=== PATIENT | female | born 1995 ===

== ENCOUNTER 2019-11-29 11:07 | Outpatient (CLI) | payer SELFPAY ==
--- NOTE | 2019-11-29 | US_ITS ---
WS: [id number] ULTRASOUND OB COMPLETE TECHNIQUE: Complete ultrasound. CLINICAL INFORMATION: CARE OF FIRST COMPARISON: None. FINDINGS: Cervix 4.9 cm Single interuterine gestation is identified with vertex presentation. Placenta is posterior. Placenta grade 1. Normal amniotic fluid volume. cardiac activity: 122 BPM. AGA: 29 weeks 6 days IGNACIO by ultrasound: February 08, 2020 Estimated weight: 3 lbs. 3 oz. BDP: 7.4 cm = 29w5d HC: 27.5 cm = 30w1d AC: 25.5 cm = 29w5d FEMUR LENGTH: 5.7 cm = 29w5d Anatomic survey: Anatomic survey is normal. Normal stomach. Kidneys and bladder are normal. Normal 3 vessel cord. Norm al 3 vessel cord insertion. Normal 4 chamber heart. Normal spine. Intracranial contents are normal. N ormal posterior fossa and cisterna magna. US/US OB >= 14 weeks fetus [id number] IMPRESSION: 1. Single intrauterine with visualized cardiac activity. AGA 29 week s 6 days with IGNACIO February 08, 2020. 2. Placenta is posterior No evidence of abruption or previa. 3. anatomic survey is normal. 4. Normal amniotic fluid volume.
== END 2019-11-29 11:08 | disposition home or self-care (01) ==
LOC: RADOUTREAD 11-30 09:48
PROVIDERS: Visit Provider Family Medicine
DX: Z34.03 Encounter for supervision of normal first pregnancy, third trimester (principal)

== ENCOUNTER 2020-01-31 08:10 | Inpatient (IN) | payer SELFPAY ==
[2020-01-31] VITALS (28 sets, daily range): BP systolic 0–147; BP diastolic 0–97; PULSE 75–133; RESP 14–18; TEMP 36.4–37.3; O2SAT 98–99; BMI 29.2
[2020-01-31 06:34] LABS: Basophils # 0.1 10^3/uL (0.0-0.1); Basophils % 0.3 %; Eosinophils # 0.1 10^3/uL (0.0-0.8); Eosinophils % 0.6 %; Hemoglobin 12.5 g/dL (11.5-15.3); Lymphocytes # 1.4 10^3/uL (0.8-4.8); Lymphocytes % 8.2 %; Mean Corpuscular HGB Conc 33.8 g/dL (30.0-36.0); Mean Corpuscular Volume 88.7 fL (81-99); Mean Platelet Volume 10.6 fL (7.4-10.4); Monocytes # 1.1 10^3/uL (0.2-0.9); Monocytes % 6.2 %; Neutrophils # 14.3 10^3/uL (1.8-7.7); Neutrophils % 84.1 %; Nucleated Red Blood Cells % 0 %; Platelet Count 356 10^3/cmm (130-400); Red Blood Count 4.17 10^6/uL (4.1-5.3); Red Cell Distribution Width 12.7 % (12.1-15.1); White Blood Count 17.1 10^3/uL (4.0-10.0)
--- NOTE | 2020-01-31 07:53 | P.PCNOB_ITS ---
Delivery Note: Date of delivery: January 31, 2020 Pre-delivery diagnoses: 24-year-old 3 para 2-0-0-2 at 38 weeks estimated gestational age presenting in active labor Post-delivery diagnoses: Status post spontaneous vaginal delivery Procedure: Spontaneous vaginal delivery Op report anesthesia: None Delivering Physician: Shade Parekh Estimated blood loss (mL): 250 Pre-Delivery Course: The patient presented to the hospital in active labor. She is GBS negative. Blood type is A+. Her glucose screen was also negative. An amniotomy was performed about an hour prior to delivery. She progressed to complete without difficulty. Delivery: DELIVERY: The patient progressed to complete without difficulty. She delivered a male with a weight of 7 pounds 8 ounces with Apgars of 9, 9. The baby was delivered from the YOLANDE position. The baby's mouth and nose were suctioned at the site of the perineum. The baby was then completely delivered and placed on the mother's abdomen. The cord was then clamped and cut. There was no nuchal cord. There was no meconium. The placenta and 3 vessel cord were delivered intact shortly thereafter. The perineum and vaginal vault were carefully examined. No lacerations were noted. Both the mother and the baby were in stable condition. Post-Delivery Status: Good Coding Level of Care Code Acute Director Instrumentation for Che Durand
[2020-01-31] MEDS: docusate sodium 100 mg Capsule PO ×2 (10:01→18:52)
[2020-01-31] MEDS: prenatal vitamin Capsule 1 CAP PO (10:01)
--- NOTE | 2020-01-31 12:50 | PC.NURSE ---
All discussed with assistance of hospital language translator. Patient verbalized understanding to language translator
[2020-01-31 19:58] LABS: Hematocrit 31.2 % (37.0-47.0); Hemoglobin 10.5 g/dL (11.5-15.3); Mean Corpuscular HGB Conc 33.7 g/dL (30.0-36.0); Mean Corpuscular Hemoglobin 30.4 pg (28.0-34.0); Mean Corpuscular Volume 90.4 fL (81-99); Mean Platelet Volume 10.2 fL (7.4-10.4); Platelet Count 301 10^3/cmm (130-400); Red Blood Count 3.45 10^6/uL (4.1-5.3); White Blood Count 19.1 10^3/uL (4.0-10.0)
[2020-02-01 02:59] VITALS: BP 105/64; PULSE 84; RESP 14; TEMP 36.8; O2SAT 97
[2020-02-01 04:13] VITALS: BP 121/77; PULSE 80; RESP 14; TEMP 36.7; O2SAT 98
[2020-02-01 10:00] VITALS: BP 108/76; PULSE 76; RESP 16; TEMP 36.6
[2020-02-01] MEDS: prenatal vitamin Capsule 1 CAP PO (10:35)
[2020-02-01] MEDS: docusate sodium 100 mg Capsule PO (10:35)
[2020-02-01 16:22] VITALS: BP 115/73; PULSE 88; RESP 17; TEMP 37.1
--- NOTE | 2020-02-01 16:25 | PC.NURSE ---
This instructional writer contacted pharmacy regarding the flu vaccine not being available on the JAN. Pharmacy stated that Dr. Parekh held the flu vaccine. Flu vaccine is not to be given at this time due to the order being held.
[2020-02-01 18:50] VITALS: BP 115/73; PULSE 88; RESP 17; TEMP 37.1
--- NOTE | 2020-02-23 08:06 | P.DS_ITS ---
Discharge Providers AIRPLANE DISPATCHER Date of Admission: 01/31/20 08:10 Date of Discharge: 02/01/20 Attending Provider at Admission: Shade Parekh MD Attending Provider at Discharge: Shade Parekh MD Diagnoses at Discharge Discharge Diagnosis (1) Spontaneous vaginal delivery: Status: Acute Reason for Visit Reason for Visit: Reason For Visit: contractions Hospital Course Hospital Course: The patient is a healthy multigravida female at 38 weeks estimated gestational age who presented to the hospital in active labor. She had an unremarkable labor and an unremarkable delivery. Her course was also unremarkable. She was able to breast-feed but also chose to bottlefeed in addition. Her bleeding was within normal limits. There were no concerns. Information Peripartum Data: Infant Delivery Method: Vaginal Physical Exam Narrative: EXAM NARRATIVE: The patient is alert. She appears comfortable. Her heart has a regular rate and rhythm with no murmurs appreciated. Lungs are clear to auscultation bilaterally. Her fundus is firm and below the umbilicus. Discharge Data Vitals: Last Vital Signs Temp 98.8 F 02/01/20 18:50 Pulse 88 02/01/20 18:50 Resp 17 02/01/20 18:50 BP 115/73 02/01/20 18:50 Pulse Ox 98 02/01/20 04:13 Discharge Plan Discharge Patient Disposition: Home, Self-Care Condition: Stable Prescriptions: New ibuprofen 800 mg Tablet 800 mg PO TID Qty: 30 RF: 0 Discharge Orders: Discharge Order (Routine); Ordered 02/01/20 Ordered By: Shade Parekh Referrals: Shade Parekh MD [Physician] - 03/19/20 1:30 pm (Your 6 week follow up appointment is with Dr. Parekh on March 19, 2020 1:30pm. ) Discharge Diet: Usual diet Discharge Activity: Limit activity as instructed Patient Instructions: Ibuprofen (By mouth), OB Discharge Report, OB Home Care, OB Proud Parent Packet, OB Vaginal Deliveries Activity Restrictions/Additional Instructions: Continue to take vitamins [id number]. Discharge Date/Time: 02/01/20 16:40 Discharge Attestations AIRPLANE DISPATCHER Time Spent in Discharge Care*: less than 30 min Coding Level of Care Code Acute Data Warehouse Manager for Chg Fwd Diagnoses Spontaneous vaginal delivery O80
== END 2020-02-01 16:40 | disposition home or self-care (01) | DRG 807 ==
LOC: OPOB 02-02 09:17
PROVIDERS: Admitting Provider Family Medicine; Visit Provider Family Medicine
DX: O80 Encounter for full-term uncomplicated delivery (principal); Z37.0 Single live birth; Z3A.38 38 weeks gestation of pregnancy
CPT/HCPCS: 12345; 59025; 59409; 85025; 85027; 99211

== ENCOUNTER → 2023-04-16 09:58 | Outpatient (BNVA) | payer SELFPAY | PROVIDERS: Visit Provider Nurse Practitioner Women's Health | DX: Z32.01 Encounter for pregnancy test, result positive (principal) | CPT/HCPCS: 81025 ==

== ENCOUNTER → 2023-04-20 07:48 | Outpatient (BNVA) | payer SELFPAY | PROVIDERS: Visit Provider Nurse Practitioner Women's Health | DX: O09.899 Supervision of other high risk pregnancies, unspecified trimester (principal); O41.8X90 Other specified disorders of amniotic fluid and membranes, unspecified trimester, not applicable or unspecified; O46.8X9 Other antepartum hemorrhage, unspecified trimester; O09.30 Supervision of pregnancy with insufficient antenatal care, unspecified trimester; Z3A.13 13 weeks gestation of pregnancy | CPT/HCPCS: 76801 ==

== ENCOUNTER → 2023-04-23 10:55 | Outpatient (BNVA) | payer SELFPAY | PROVIDERS: Visit Provider Nurse Practitioner Women's Health | DX: O09.899 Supervision of other high risk pregnancies, unspecified trimester (principal); Z3A.00 Weeks of gestation of pregnancy not specified | CPT/HCPCS: 80307; 81000; 85027; 86592; 86762; 86803; 86850; 86900; 87086; 87340; 87806 ==

== ENCOUNTER → 2023-04-27 13:07 | Outpatient (BNVA) | payer SELFPAY | PROVIDERS: Visit Provider Obstetrics & Gynecology | DX: O09.30 Supervision of pregnancy with insufficient antenatal care, unspecified trimester (principal); Z3A.00 Weeks of gestation of pregnancy not specified | CPT/HCPCS: 81000 ==

== ENCOUNTER → 2023-06-04 11:02 | Outpatient (BNVA) | payer SELFPAY | PROVIDERS: Visit Provider Obstetrics & Gynecology | DX: Z34.90 Encounter for supervision of normal pregnancy, unspecified, unspecified trimester (principal) | CPT/HCPCS: 76805 ==

== ENCOUNTER → 2023-06-05 09:00 | Outpatient (BNVA) | payer SELFPAY | PROVIDERS: Visit Provider Obstetrics & Gynecology | DX: O09.899 Supervision of other high risk pregnancies, unspecified trimester (principal); O41.8X90 Other specified disorders of amniotic fluid and membranes, unspecified trimester, not applicable or unspecified; O46.8X9 Other antepartum hemorrhage, unspecified trimester; Z78.9 Other specified health status; Z3A.21 21 weeks gestation of pregnancy | CPT/HCPCS: 81000 ==

== ENCOUNTER → 2023-07-01 14:12 | Outpatient (BNVA) | payer MEDICAID, SELFPAY | PROVIDERS: Visit Provider Nurse Practitioner Women's Health | DX: O09.899 Supervision of other high risk pregnancies, unspecified trimester (principal); Z3A.24 24 weeks gestation of pregnancy | CPT/HCPCS: 81000; 82950 ==

== ENCOUNTER → 2023-07-30 11:44 | Outpatient (BNVA) | payer MEDICAID, SELFPAY | PROVIDERS: Visit Provider Obstetrics & Gynecology | DX: O09.899 Supervision of other high risk pregnancies, unspecified trimester (principal); Z3A.28 28 weeks gestation of pregnancy | CPT/HCPCS: 81000; 85025 ==

== ENCOUNTER → 2023-08-14 08:10 | Outpatient (BNVA) | payer MEDICAID, SELFPAY | PROVIDERS: Visit Provider Nurse Practitioner Women's Health | DX: O09.899 Supervision of other high risk pregnancies, unspecified trimester (principal); O99.019 Anemia complicating pregnancy, unspecified trimester; Z3A.30 30 weeks gestation of pregnancy; D64.9 Anemia, unspecified | CPT/HCPCS: 81000 ==

== ENCOUNTER → 2023-08-31 13:04 | Outpatient (BNVA) | payer MEDICAID, SELFPAY | PROVIDERS: Visit Provider Obstetrics & Gynecology | DX: O09.899 Supervision of other high risk pregnancies, unspecified trimester (principal); O99.019 Anemia complicating pregnancy, unspecified trimester; Z3A.32 32 weeks gestation of pregnancy | CPT/HCPCS: 81000 ==

== ENCOUNTER → 2023-09-14 14:30 | Outpatient (BNVA) | payer MEDICAID, SELFPAY | PROVIDERS: Visit Provider Obstetrics & Gynecology | DX: O09.899 Supervision of other high risk pregnancies, unspecified trimester (principal) | CPT/HCPCS: 81000 ==

== ENCOUNTER → 2023-09-28 13:42 | Outpatient (BNVA) | payer MEDICAID, SELFPAY | PROVIDERS: Visit Provider Obstetrics & Gynecology | DX: O09.899 Supervision of other high risk pregnancies, unspecified trimester (principal); Z3A.36 36 weeks gestation of pregnancy | CPT/HCPCS: 81000; 87081 ==

== ENCOUNTER → 2023-10-05 11:45 | Outpatient (BNVA) | payer MEDICAID, SELFPAY | PROVIDERS: Visit Provider Obstetrics & Gynecology | DX: O09.899 Supervision of other high risk pregnancies, unspecified trimester (principal); Z3A.37 37 weeks gestation of pregnancy | CPT/HCPCS: 81000 ==

== ENCOUNTER → 2023-10-12 13:00 | Outpatient (BNVA) | payer MEDICAID, SELFPAY | PROVIDERS: Visit Provider Obstetrics & Gynecology | DX: O09.899 Supervision of other high risk pregnancies, unspecified trimester (principal); Z3A.38 38 weeks gestation of pregnancy | CPT/HCPCS: 81000 ==

== ENCOUNTER → 2023-10-19 13:40 | Outpatient (BNVA) | payer MEDICAID, SELFPAY | PROVIDERS: Visit Provider Obstetrics & Gynecology | DX: O09.899 Supervision of other high risk pregnancies, unspecified trimester (principal); Z3A.39 39 weeks gestation of pregnancy | CPT/HCPCS: 81000 ==

== ENCOUNTER 2023-10-20 17:03 | Outpatient (CLI) | payer MEDICAID, SELFPAY ==
[2023-10-20 17:05] VITALS: BMI 31.5
[2023-10-20 17:29] VITALS: BP 132/80; PULSE 76
[2023-10-20 17:49] VITALS: BP 114/79; PULSE 80
== END 2023-10-20 18:00 | disposition home or self-care (01) ==
LOC: OPOB 17:09 → OBGYN 17:10
PROVIDERS: Visit Provider Obstetrics & Gynecology
DX: O26.899 Other specified pregnancy related conditions, unspecified trimester (principal); Z3A.00 Weeks of gestation of pregnancy not specified
CPT/HCPCS: 59025; 99211

== ENCOUNTER 2023-10-21 19:56 | Inpatient (IN) | payer MEDICAID, SELFPAY ==
[2023-10-21] VITALS (42 sets, daily range): BP systolic 100–157; BP diastolic 56–85; PULSE 64–104; RESP 18; TEMP 35.3–36.2; O2SAT 93–97; BMI 30.4
[2023-10-21 09:41] LABS: Basophils # 0.1 10^3/uL (0.0-0.1); Basophils % 0.5 %; Eosinophils # 0.3 10^3/uL (0.0-0.8); Eosinophils % 2.8 %; Hematocrit 37.1 % (36-47); Lymphocytes # 1.9 10^3/uL (0.8-4.8); Mean Corpuscular HGB Conc 33.7 g/dL (30-55); Mean Corpuscular Hemoglobin 30.6 pg (27-33); Mean Corpuscular Volume 90.7 fl (85-98); Mean Platelet Volume 10.1 fL (7.4-10.4); Monocytes # 0.8 10^3/uL (0.2-0.9); Monocytes % 7.4 %; Neutrophils % 70.6 %; Nucleated Red Blood Cells % 0 %; Platelet Count 279 10^3/cmm (157-399); Red Blood Count 4.09 10^6/uL (3.85-5.65); Red Cell Distribution Width 15.1 % (12.1-15.1); White Blood Count 10.75 10^3/uL (3.29-11.43)
[2023-10-21] MEDS: miSOPROStol 100 mcg tablet 25 MCG VAGINAL (09:45)
--- NOTE | 2023-10-21 09:55 | PM.OPHPUD ---
Labor & Delivery H&P Update Date of Procedure: October 21, 2023 Date H&P Performed: 10/12/23 H&P update information: I have reviewed H&P completed within last 30 days, I have examined patient prior to procedure and No changes to prior documentation Admission Diagnosis:
[2023-10-21] MEDS: lactated ringers 1,000 ML 999 ML IV (11:52)
[2023-10-21] MEDS: lactated ringers 1,000 ML 125 ML IV (16:59)
[2023-10-21] MEDS: fentaNYL 50 mcg/mL INJ 2mL IVP ×2 (18:26→19:26)
[2023-10-21] MEDS: oxytocin 30 UNIT/500 ML BAG 600 UNIT IV (20:51)
--- NOTE | 2023-10-21 21:00 | PM.DELIVERY ---
Delivery Note: Date of delivery: October 21, 2023 Pre-delivery diagnoses: Term Post-delivery diagnoses: Term delivered Procedure: Spontaneous vaginal delivery Delivering Physician: James Burdick MD Estimated blood loss (mL): 300 Delivery: The patient was noted to be complete and pushing, so was placed in the dorsal lithotomy position, prepped and draped in the usual sterile fashion for a vaginal delivery. Pt. Noted to have epidural anesthesia. The patient delivered a viable term female infant weighing 3555 g with scores of 8 and 9 at one and five minutes, respectively. The vertex was delivered spontaneously over intact perineum. The patient was asked to push and the head delivered spontaneously in the CORA position, over an intact perineum. A nuchal cord was checked and 1 noted, and delivered through around head as necessary. The anterior shoulder delivered easily and the posterior shoulder followed. The remainder of the infant was easily delivered and the oropharynx and nasopharynx was bulb suctioned. The infant was noted to have spontaneous cry and spontaneous movement of all four extremities. The cord was clamped x 2 and cut and noted to have 2 arteries and one vein. The infant was passed to the mother's abdomen where nursing personnel were in attendance. The placenta delivered intact spontaneously and the uterus was explored. 20 units of Pitocin was placed in the IV bag to firm the uterus. Examination of the cervix and vaginal vault did not reveal any lacerations. A vaginal pack was then placed. Examination of the perineum showed no lacerations. The vaginal pack was then removed. The patient tolerated this procedure well, and recovered in L&D with her in their LDR room. All sponge and needle counts were correct. Post-Delivery Status: Good History History History 3 Term 2 0 Miscarriages/Ectopic 0 Living Children 2 A&P Assessment and plan (1) Term delivered: Plan observation Coding Level of Care Code Acute Code for Chg Fwd Diagnoses Term delivered O80
[2023-10-22] VITALS (11 sets, daily range): BP systolic 103–122; BP diastolic 63–83; PULSE 76–106; RESP 16–18; TEMP 36.6–37.5; O2SAT 96–99
[2023-10-22] MEDS: docusate sodium 100 mg Capsule PO ×2 (09:05→20:47)
[2023-10-22] MEDS: prenatal vitamin Capsule 1 CAP PO (09:05)
[2023-10-22] MEDS: ibuprofen 800 mg tablet PO ×3 (09:05→20:45)
[2023-10-22 10:40] LABS: Hematocrit 34.2 % (36-47); Mean Corpuscular HGB Conc 33.6 g/dL (30-55); Mean Corpuscular Hemoglobin 30.7 pg (27-33); Mean Corpuscular Volume 91.4 fl (85-98); Mean Platelet Volume 10.1 fL (7.4-10.4); Platelet Count 267 10^3/cmm (157-399); Red Blood Count 3.74 10^6/uL (3.85-5.65); Red Cell Distribution Width 15.1 % (12.1-15.1); White Blood Count 12.66 10^3/uL (3.29-11.43)
--- NOTE | 2023-10-22 17:30 | PM.OBGYDC ---
Discharge Providers MARKETING ASSISTANT MANAGER Date of Admission: 10/21/23 19:56 Date of Discharge: 10/22/23 Attending Provider at Admission: James Burdick MD Attending Provider at Discharge: James Burdick MD Diagnoses at Discharge Discharge Diagnosis (1) Term delivered: Status: Acute Reason for Visit Reason for Visit: Induction Hospital Course Hospital Course Mrs. Ramos 28-year-old female G3, P2 with an estimated stational age at 40 weeks. Came to labor and delivery for elective induction but she had low ratio when she was having contractions every 5 minutes. She progressed spontaneously to have a spontaneous vaginal delivery without complications. She delivered a term female infant Apgars 8/9 with a birthweight of 3555 g. observation was uneventful. She is afebrile and hemodynamically stable day 1. Tolerating diet well. Ambulating without difficulty. She is breast-feeding. She refers she may try progesterone only contraception as she will be breast-feeding when she comes back at the 6-week visit. She was counseled regarding pelvic rest for 6 weeks (no sex, no tampons, no vaginal douches). Return to the emergency room if any fever, increased bleeding or pain. Information Peripartum Data: Infant Delivery Method: Vaginal Physical Exam Narrative: GA; alert and oriented x 3 HEENT: normal Breasts: engorged Nipples - skin intact Lungs; clear to auscultation Heart: regular rhythm, no murmurs. Abd: Appropriately tender. BS+. Uterine fundus below umbilicus. No Fundal Tenderness. Perineum: normal lochia. Extremities: no edema, no cyanosis, no tenderness. History History History 3 Term 2 0 Miscarriages/Ectopic 0 Living Children 2 Discharge Data Studies Completed and Pending Laboratory Results WBC 12.66 10^3/uL (3.29-11.43) H 10/22/23 09:55 RBC 3.74 10^6/uL (3.85-5.65) L 10/22/23 09:55 Hgb 11.50 g/dL (11.27-16.99) 10/22/23 09:55 Hct 34.2 % (36-47) L 10/22/23 09:55 MCV 91.4 fl (85-98) 10/22/23 09:55 MCH 30.7 pg (27-33) 10/22/23 09:55 MCHC 33.6 g/dL (30-55) 10/22/23 09:55 RDW 15.1 % (12.1-15.1) 10/22/23 09:55 Plt Count 267 10^3/cmm (157-399) 10/22/23 09:55 MPV 10.1 fL (7.4-10.4) 10/22/23 09:55 Neut % (Auto) 70.6 % 10/21/23 09:15 Lymph % (Auto) 18.0 % 10/21/23 09:15 [place] % (Auto) 7.4 % 10/21/23 09:15 Eos % (Auto) 2.8 % 10/21/23 09:15 Baso % (Auto) 0.5 % 10/21/23 09:15 Neut # (Auto) 7.60 10^3/uL (1.8-7.7) 10/21/23 09:15 Lymph # (Auto) 1.9 10^3/uL (0.8-4.8) 10/21/23 09:15 [place] # (Auto) 0.8 10^3/uL (0.2-0.9) 10/21/23 09:15 Eos # (Auto) 0.3 10^3/uL (0.0-0.8) 10/21/23 09:15 Baso # (Auto) 0.1 10^3/uL (0.0-0.1) 10/21/23 09:15 Nucleated RBC % (auto) 0 % 10/21/23 09:15 Nucleated RBCs # 0.0 /100WBC 10/21/23 09:15 Blood Type A Positive 10/21/23 09:15 Rho(D) Type Rh positive 10/21/23 09:15 Antibody Screen Negative 10/21/23 09:15 Vitals Last Vital Signs Temp 99.3 F 10/22/23 11:50 Pulse 96 10/22/23 11:50 Resp 16 10/22/23 11:50 BP 119/75 10/22/23 11:50 Pulse Ox 96 10/22/23 11:50 O2 Del Method Room Air 10/22/23 11:50 Results Labs OB ([facility]): Blood Type A Positive 10/21/23 Antibody Screen Negative 10/21/23 Hct 34.2 % (36-47) L 10/22/23 Hgb 11.50 g/dL (11.27-16.99) 10/22/23 Rho(D) Type Rh positive 10/21/23 Plt Count 267 10^3/cmm (157-399) 10/22/23 Hep Bs Antigen Non-reactive (Nonreactive) 04/23/23 Hepatitis C Antibody Non-reactive (Nonreactive) 04/23/23 Rubella IgG Antibody 47.1 IU/mL (0.0-10.0) H 04/23/23 RPR Nonreactive (Nonreactive) 04/23/23 HIV 1&2 Ab & HIV 1 Ag Non-reactive (Non-Reactiv) 04/23/23 Cystic Fibrosis Screen Negative 04/23/23 Gest Glucose Tolerance 80 mg/dL 07/01/23 HCG, Qual Positive (Negative) H 04/16/23 Urine Opiates Screen Negative ng/mL (Negative) 04/23/23 Ur Barbiturates Screen Negative ng/mL (Negative) 04/23/23 Ur Phencyclidine Scrn Negative ng/mL (Negative) 04/23/23 Ur Amphetamines Screen Negative ng/mL (Negative) 04/23/23 U Benzodiazepines Scrn Negative ng/mL (Negative) 04/23/23 Urine Cocaine Screen Negative ng/mL (Negative) 04/23/23 U Marijuana (THC) Screen Negative ng/mL (Negative) 04/23/23 Micro Urine Specimen 04/23/23 Discharge Plan Discharge Patient Disposition: Home Condition: Stable Prescriptions: New ibuprofen 800 mg tablet 800 mg PO TID PRN (Reason: pain) Qty: 60 0RF acetaminophen 325 mg capsule 325 mg PO Q4H PRN (Reason: fever or pain) Qty: 60 0RF docusate sodium [Colace] 100 mg capsule 100 mg PO BID Qty: 60 0RF Continued ferrous sulfate 325 mg (65 mg iron) tablet 325 mg PO BID Qty: 60 4RF prenat.vits,annette,dzi-kmiw-hevdv Tablet 1 tab PO DAILY Discharge Orders: Discharge Order (Routine); Ordered 10/22/23 Ordered By: James Burdick Referrals: James Burdick MD [Physician] - 6 Weeks Discharge Diet: Usual diet Discharge Activity: Limit activity as instructed Patient Instructions: Depression (DC), and Nipple Soreness (DC), How to Increase Your Milk Supply (DC), Bleeding (DC), Pelvic Rest (ED), Preeclampsia and Eclampsia After Delivery (GEN), Breast Care for the Mother (DC), OB Care at Home, Opioid Safety, Abnormal Bleeding Activity Restrictions/Additional Instructions: 1. Please call [facility] on next working day to make your appointment in 6 weeks. 2. Please stay home until you come back to the clinic on first post-hospatilization check up. 3. Please follow instructions on your medications CAREFULLY. 4. If you have abdominal incision, do not cover it unless dressing is necessary because of drainage. OK to shower, but avoid bath. Leave steri-strips until they fall off. If they are still on one week after surgery, you may remove them. 5. If you had vaginal surgery or vaginal repair, Dr. Burdick may instruct you to take SITZ bath. 6. Yellow, blood tinged odorous vaginal discharge is usually normal after hysterectomy or vaginal surgeries. 7. No SEXUAL INTERCOURSE, tampons, or douches until you are completely released from the post-operative care. 8. Avoid constipation by eating right and maybe using some Metamucil or Milk of Magnesia. 9. All prescription refills are given during the working hours. Please do no wait till it runs out. Call the clinic at [phone] before your medication runs out. The clinic will get in touch with your doctor to prescribe medications if necessary. 10. Please remain within 40 mile radius from our hospital because emergencies do happen now and then during the post-operative period. 11. If you have stairs at home, take one step at a time slowly and minimize the number of trips. It helps to stay in one floor for the next few days. No lifting except what you can lift by one hand until you are released from the post-operative care. 12. Driving is discouraged until you are well healed. It may be 3-4 weeks before you feel strong enough to drive. You should be able to turn and look through the rear window without pain and you should be able to push the brake pedal very hard without pain before you drive. No fast rules, but SAFETY should be your primary concern. DO NOT drive if you are on sedating medications such as narcotics. 13. Call the clinic (during working hours) to make urgent appointment or go to the Emergency room, if any of the following occurs: i. Vaginal bleeding becomes heavy, more than a period. ii. Incision becomes red and sore, or drains pus. iii. Your TEMPERATURE is over 100.4F or you have chill. iv. IV site becomes red and swollen (a little ``knot?? is usually OK) v. Persistent nausea and vomiting vi. Persistent constipation or diarrhea vii. Rash or allergic reaction to medications. Discharge Attestations MARKETING ASSISTANT MANAGER Time Spent in Discharge Care*: greater than 30 min Coding Level of Care Code Acute Code for Chg Fwd Diagnoses Term delivered O80
== END 2023-10-22 23:04 | disposition home or self-care (01) | DRG 807 ==
LOC: OPOB 19:57 → OBGYN 19:57
PROVIDERS: Admitting Provider Obstetrics & Gynecology; Visit Provider Obstetrics & Gynecology
DX: O48.0 Post-term pregnancy (principal); Z37.0 Single live birth; Z3A.40 40 weeks gestation of pregnancy; O99.02 Anemia complicating childbirth; O69.81X0 Labor and delivery complicated by cord around neck, without compression, not applicable or unspecified
CPT/HCPCS: 36415; 59025; 59409; 85025; 85027; 86850; 86900; 96374; 96376; 99211; J2590; J3010; J7120